=== PATIENT | male | born 1975 | race Caucasian/White ===

== ENCOUNTER 2020-05-24 12:13 | Emergency (ER) | payer BC ==
--- NOTE | 2020-05-24 12:28 | ERPHSYRPT ---
- History of Present Illness Time Seen by Provider: 05/24/20 12:23 Source: patient Exam Limitations: no limitations Physician History: Is a 44-year-old overweight white male who was in the respiratory clinic getting pulmonary function test performed when he was standing up and performing incentive spirometry testing, he began seizing fell to the ground hitting his head. He is brought into the emergency department for evaluation. Patient does complain of's headache. He did not soil himself. He has no history of seizure disorder. He has no history of new medications. He is never had anything like this before. Patient has a cervical collar in place. He denies chest pain he denies fever he denies any issues. Occurred: just prior to arrival Reason for Fall: unknown Injuries/Pain Location: head Loss of Consciousness: seizure (Brief and resolved on its own) Quality: other Severity of Pain-Max: mild (Headache) Severity of Pain-Current: mild Associated Symptoms (Fall): headache Allergies/Adverse Reactions: No Known Drug Allergies Allergy (Verified 05/24/20 12:24) Home Medications: Escitalopram Oxalate [Lexapro] 20 mg PO DAILY 05/24/20 [History] Ezetimibe [Zetia] 10 mg PO DAILY 05/24/20 [History] Rosuvastatin Calcium [Crestor] 40 mg PO DAILY 05/24/20 [History] Travel Risk - International Travel Have you traveled outside of the country in past 3 weeks: No - Coronavirus Screening Are you exhibiting any of the following symptoms?: No Close contact with a COVID-19 positive Pt in past 14-21 Days: No - Review of Systems Constitutional: No Symptoms Eyes: No Symptoms Ears, Nose, & Throat: No Symptoms Respiratory: No Symptoms Cardiac: No Symptoms Abdominal/Gastrointestinal: No Symptoms Genitourinary Symptoms: No Symptoms Musculoskeletal: No Symptoms Skin: No Symptoms Neurological: Headache, Seizure Psychological: No Symptoms Endocrine: No Symptoms Hematologic/Lymphatic: No Symptoms Immunological/Allergic: No Symptoms All Other Systems: Reviewed and Negative - Past Medical History Pertinent Past Medical History: Yes Neurological History: No Pertinent History ENT History: No Pertinent History Respiratory History: No Pertinent History Endocrine Medical History: No Pertinent History Musculoskeletal History: No Pertinent History GI Medical History: No Pertinent History History: No Pertinent History Psycho-Social History: No Pertinent History Male Reproductive Disorders: No Pertinent History - Past Surgical History Neuro Surgical History: No Pertinent History Cardiac: No Pertinent History Respiratory: No Pertinent History Gastrointestinal: No Pertinent History Genitourinary: No Pertinent History Male Surgical History: No Pertinent History - Nursing Vital Signs Nursing Vital Signs: Initial Vital Signs Temperature 98.5 F 05/24/20 12:16 Pulse Rate 79 05/24/20 12:16 Respiratory Rate 22 05/24/20 12:16 Blood Pressure 165/97 05/24/20 12:16 O2 Sat by Pulse Oximetry 96 05/24/20 12:16 Pain Scale Pain Intensity 0 - [place] Coma Score Best Eye Response (Willie): (4) open spontaneously Best Verbal Response (Willie): (5) oriented Best Motor Response (Willie): (6) obeys commands [place] Total: 15 - Physical Exam General Appearance: no apparent distress, alert, anxiety Head Injury: no evidence of injury Eye Exam: PERRL/EOMI, eyes nml inspection ENT Exam: airway nml, nml ext.inspection, No evidence of ENT injury Neck Exam: supple, trachea midline, full range of motion, normal alignment, normal inspection, c-collar in place Respiratory/Chest Exam: normal breath sounds, No chest tenderness, No respiratory distress, No crepitus Cardiovascular Exam: normal heart sounds, regular rate/rhythm Gastrointestinal Exam: soft, normal bowel sounds, No tenderness Rectal Exam: not done Back Exam: normal inspection, normal range of motion, No CVA tenderness, No vertebral tenderness Extremity Exam: normal inspection, normal range of motion, capillary refill <3 sec, pelvis stable Neurologic Exam: alert, oriented x 3, cooperative, correctional nurse II-XII nml as tested, normal mood/affect, sensation nml Skin Exam: normal color, warm, dry SpO2 Interpretation: normal O2 Delivery: Room Air - Course Nursing assessment & vital signs reviewed: Yes EKG Interpreted by Me: RATE, Sinus Rhythm, NORMAL AXIS, NORMAL INTERVALS, NORMAL QRS, Other (No comparison EKG available) Ordered Tests: Active Orders 24 hr Category Date Time Status 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 Care 05/24/20 12:36 Active EKG-ER Only STAT Care 05/24/20 12:35 Active IV Insertion STAT Care 05/24/20 12:35 Active Pulse Oximetry (ED) STAT Care 05/24/20 12:35 Active Seizure Precautions -SCCHED STAT Care 05/24/20 12:35 Active CERVICAL SPINE WO CONTRAST [CT] Stat Exams 05/24/20 12:36 Completed HEAD WITHOUT CONTRAST [CT] Stat Exams 05/24/20 12:36 Completed CBC W DIFF Stat Lab 05/24/20 12:35 Completed CMP Stat Lab 05/24/20 12:35 Completed UA W/RFX UR CULTURE Stat Lab 05/24/20 13:20 Completed Urine Triage Profile Stat Lab 05/24/20 13:20 Completed Lab/Rad Data: Laboratory Result Diagrams 05/24/20 12:35 05/24/20 12:35 Laboratory Results 05/24/20 05/24/20 05/24/20 Range/Units 13:20 13:20 12:35 WBC (4.0-10.5) K/mm3 RBC (4.1-5.6) M/mm3 Hgb (12.5-18.0) gm/dl Hct (42-50) % MCV (78-100) fl MCH (26-32) pg MCHC (32-36) g/dl RDW (11.5-14.0) % Plt Count (150-450) K/mm3 MPV (7.5-11.0) fl Gran % (36.0-66.0) % Eos # (Auto) (0-0.5) Absolute Lymphs (auto) (1.0-4.6) Absolute Monos (auto) (0.0-1.3) Lymphocytes % (24.0-44.0) % Monocytes % (0.0-12.0) % Eosinophils % (0.00-5.0) % Basophils % (0.0-0.4) % Absolute Granulocytes (1.4-6.9) Basophils # (0-0.4) Sodium 136 L (137-145) mmol/L Potassium 3.8 (3.5-5.1) mmol/L Chloride 103 (98-107) mmol/L Carbon Dioxide 25 (22-30) mmol/L Anion Gap 12.5 (5-15) MEQ/L BUN 15 (9-20) mg/dL Creatinine 0.78 (0.66-1.25) mg/dL Estimated GFR > 60.0 ML/MIN Glucose 102 (74-106) mg/dL Calcium 9.3 (8.4-10.2) mg/dL Total Bilirubin 0.50 (0.2-1.3) mg/dL AST 33 (17-59) U/L ALT 34 (0-50) U/L Alkaline Phosphatase 62 (38-126) U/L Serum Total Protein 7.6 (6.3-8.2) g/dL Albumin 4.6 (3.5-5.0) g/dL Urine Color YELLOW (YELLOW) Urine Appearance CLEAR (CLEAR) Urine pH 7.0 (5-6) Ur Specific [place] 1.010 (1.005-1.025) Urine Protein NEGATIVE (Negative) Urine Ketones NEGATIVE (NEGATIVE) Urine Blood NEGATIVE (0-5) Franklin/ul Urine Nitrite NEGATIVE (NEGATIVE) Urine Bilirubin NEGATIVE (NEGATIVE) Urine Urobilinogen NEGATIVE (0-1) mg/dL Ur Leukocyte Esterase NEGATIVE (NEGATIVE) Urine WBC (Auto) NONE (0-5) /HPF Urine RBC (Auto) NONE (0-2) /HPF U Epithel Cells (Auto) NONE (FEW) /HPF Urine Bacteria (Auto) NONE (NEGATIVE) /HPF Urine Mucus (Auto) SLIGHT (NEGATIVE) /HPF Urine Culture Reflexed NO (NO) Urine Glucose NEGATIVE (NEGATIVE) mg/dL Urine Opiates Level NEGATIVE (NEGATIVE) Ur Methadone NEGATIVE (NEGATIVE) Urine Barbiturates NEGATIVE (NEGATIVE) Ur Phencyclidine (PCP) NEGATIVE (NEGATIVE) Urine Amphetamine NEGATIVE (NEGATIVE) U Benzodiazepine Level NEGATIVE (NEGATIVE) Urine Cocaine NEGATIVE (NEGATIVE) Urine Marijuana (THC) NEGATIVE (NEGATIVE) 05/24/20 Range/Units 12:35 WBC 7.0 (4.0-10.5) K/mm3 RBC 4.86 (4.1-5.6) M/mm3 Hgb 14.7 (12.5-18.0) gm/dl Hct 44.2 (42-50) % MCV 90.9 (78-100) fl MCH 30.2 (26-32) pg MCHC 33.3 (32-36) g/dl RDW 13.9 (11.5-14.0) % Plt Count 190 (150-450) K/mm3 MPV 12.1 H (7.5-11.0) fl Gran % 62.2 (36.0-66.0) % Eos # (Auto) 0.09 (0-0.5) Absolute Lymphs (auto) 1.91 (1.0-4.6) Absolute Monos (auto) 0.61 (0.0-1.3) Lymphocytes % 27.4 (24.0-44.0) % Monocytes % 8.7 (0.0-12.0) % Eosinophils % 1.3 (0.00-5.0) % Basophils % 0.4 (0.0-0.4) % Absolute Granulocytes 4.34 (1.4-6.9) Basophils # 0.03 (0-0.4) Sodium (137-145) mmol/L Potassium (3.5-5.1) mmol/L Chloride (98-107) mmol/L Carbon Dioxide (22-30) mmol/L Anion Gap (5-15) MEQ/L BUN (9-20) mg/dL Creatinine (0.66-1.25) mg/dL Estimated GFR ML/MIN Glucose (74-106) mg/dL Calcium (8.4-10.2) mg/dL Total Bilirubin (0.2-1.3) mg/dL AST (17-59) U/L ALT (0-50) U/L Alkaline Phosphatase (38-126) U/L Serum Total Protein (6.3-8.2) g/dL Albumin (3.5-5.0) g/dL Urine Color (YELLOW) Urine Appearance (CLEAR) Urine pH (5-6) Ur Specific [place] (1.005-1.025) Urine Protein (Negative) Urine Ketones (NEGATIVE) Urine Blood (0-5) Franklin/ul Urine Nitrite (NEGATIVE) Urine Bilirubin (NEGATIVE) Urine Urobilinogen (0-1) mg/dL Ur Leukocyte Esterase (NEGATIVE) Urine WBC (Auto) (0-5) /HPF Urine RBC (Auto) (0-2) /HPF U Epithel Cells (Auto) (FEW) /HPF Urine Bacteria (Auto) (NEGATIVE) /HPF Urine Mucus (Auto) (NEGATIVE) /HPF Urine Culture Reflexed (NO) Urine Glucose (NEGATIVE) mg/dL Urine Opiates Level (NEGATIVE) Ur Methadone (NEGATIVE) Urine Barbiturates (NEGATIVE) Ur Phencyclidine (PCP) (NEGATIVE) Urine Amphetamine (NEGATIVE) U Benzodiazepine Level (NEGATIVE) Urine Cocaine (NEGATIVE) Urine Marijuana (THC) (NEGATIVE) - Progress Progress: improved Progress Note: 05/24/20 14:13 CAT scan of the head reveals no acute intracranial abnormality. CAT scan of the cervical spine reveals no evidence of any acute fracture or subluxation Counseled pt/family regarding: lab results, diagnosis, need for follow-up, rad results - Departure Departure Disposition: Home Clinical Impression: Vasovagal response, Head injury Condition: Stable Critical Care Time: No Referrals: DOCTOR,NO FAMILY [Primary Care Provider] - Additional Instructions: Take your medication as prescribed. May use Tylenol and ibuprofen for pain issues. Follow-up with your primary care physician for further pain management. Drink plenty of fluids.
[2020-05-24 12:48] LABS: Absolute Neutrophil Ct (ANC) 4.34 (1.4-6.9); BASOPHIL % 0.4 % (0.0-0.4); Basophil (Absolute #) 0.03 (0-0.4); Eosinophil % 1.3 % (0.00-5.0); Eosinophil (Absolute #) 0.09 (0-0.5); Hematocrit 44.2 % (42-50); Hemoglobin 14.7 gm/dl (12.5-18.0); Lymphocyte (Absolute #) 1.91 (1.0-4.6); Lymphocytes % 27.4 % (24.0-44.0); Mean Cell Volume 90.9 fl (78-100); Mean Corpuscular Hemoglobin 30.2 pg (26-32); Mean Corpuscular Hgb Concent. 33.3 g/dl (32-36); Mean Platelet Volume 12.1 fl (7.5-11.0); Monocyte (Absolute #) 0.61 (0.0-1.3); Monocytes % 8.7 % (0.0-12.0); Neutrophil % 62.2 % (36.0-66.0); Platelet Count 190 K/mm3 (150-450); Red Blood Count 4.86 M/mm3 (4.1-5.6); Red Cell Distribution Width 13.9 % (11.5-14.0)
[2020-05-24 12:59] LABS: ALBUMIN 4.6 g/dL (3.5-5.0); ALKALINE PHOSPHATASE 62 U/L (38-126); ANION GAP 12.5 MEQ/L (5-15); BLOOD UREA NITROGEN 15 mg/dL (9-20); CHLORIDE 103 mmol/L (98-107); Calcium 9.3 mg/dL (8.4-10.2); Carbon Dioxide 25 mmol/L (22-30); Creatinine 1 0.78 mg/dL (0.66-1.25); EST GLOMERULAR FILTRATION RATE > 60.0 ML/MIN; Glucose 102 mg/dL (74-106); Potassium 3.8 mmol/L (3.5-5.1); SGOT/AST 33 U/L (17-59); SGPT/ALT 34 U/L (0-50); SODIUM 136 mmol/L (137-145); Total Protein 7.6 g/dL (6.3-8.2)
--- NOTE | 2020-05-24 13:42 | XRAY ---
Exam: CT of the head without IV contrast from 05/24/2020. CTDI: 53.92 mGy Comparison: None. Indication: 44-year-old male with seizure and fall while doing a breathing test in respiratory therapy. Technique: Non-IV contrast axial images were obtained through the brain. Reconstructed coronal and sagittal images were created and reviewed. Findings: The ventricles appear within normal limits of size. The right lateral ventricle slightly larger than the left lateral ventricle which probably represents a normal variant. No focal mass effect or midline shift is seen. No acute intracranial bleed or abnormal extra-axial fluid collection is seen. The patel matter-white matter interfaces appear unremarkable. No low attenuation territorial infarct is seen. The cortical sulci and basilar cisterns appear unremarkable. Artifactual streaking is seen from dental amalgam. Bone window images reveal an intact calvarium without evidence of skull fracture. Some mucoperiosteal thickening is seen at the frontal-ethmoidal recesses bilaterally, right greater than left. There is also scant mucoperiosteal thickening within the upper medial aspect of each maxillary antrum. No air-fluid levels are seen. There is some focal inward bowing of the medial wall of the right orbit on axial image #28 and #29 which is apparently old. However, correlate clinically. The mastoids reveal normally aerated air cells without effusion. The middle ear cavities appear grossly unremarkable. The remainder of the orbits appears normal. Impression: 1. No acute intracranial bleed or other acute intracranial process is seen. 2. There is mild focal inward bowing of the medial wall of the right orbit on axial images #28 and #29. Apparently, this is old. Correlate clinically. 3. I also note a small amount of mucoperiosteal thickening within the frontal-ethmoid recesses, right greater than left. Scant mucoperiosteal thickening is seen at the medial margin of the maxillary sinuses. No air-fluid levels are seen.
--- NOTE | 2020-05-24 13:49 | XRAY ---
Exam: CT of the cervical spine without IV contrast from 05/24/2020. CTDI: 58.51 mGy Comparison: None. Indication: 44-year-old male with seizure and fall while doing a breathing test in respiratory therapy. Indication: Non-IV contrast axial images were obtained through the cervical spine. Reconstructed coronal and sagittal images were created and reviewed. Findings: I see no evidence of acute cervical spine fracture or AP subluxation. No prevertebral soft tissue swelling is seen. I see no locking of any of the facet joints. Minimal anterior vertebral endplate spurring is seen at C5-C6. There is no evidence of central cervical canal stenosis. The cervical interspaces reveal no significant narrowing. Minimal hypertrophic changes of the upper and mid cervical uncovertebral joints are seen. There are no cervical ribs. The C1-C2 relationship appears unremarkable. No gross significant cervical disc protrusion is seen. No significant neural foraminal narrowing is seen. The right C2-C3 and C3-C4 neural foramen do appear narrower than the respective neural foramen the left. The visualized lung apices appear clear. Impression: 1. No acute cervical spine fracture, AP traumatic subluxation, or prevertebral soft tissue swelling is seen. 2. Minimal degenerative changes, as discussed above.
[2020-05-24 13:52] LABS: Appearance CLEAR (CLEAR); Bilirubin NEGATIVE (NEGATIVE); Blood NEGATIVE Ery/ul (0-5); Glucose NEGATIVE (NEGATIVE); Ketones NEGATIVE (NEGATIVE); Leukocyte Esterase NEGATIVE (NEGATIVE); Mucus SLIGHT /HPF (NEGATIVE); Nitrite NEGATIVE (NEGATIVE); Protein,Urine Dip NEGATIVE (Negative); Urobilinogen NEGATIVE mg/dL (0-1)
[2020-05-24 14:00] LABS: Amphetamine,Urine NEGATIVE (NEGATIVE); Barbiturate,Urine NEGATIVE (NEGATIVE); Benzodiazepine,Urine NEGATIVE (NEGATIVE); Cocaine,Urine NEGATIVE (NEGATIVE); Methadone,Urine NEGATIVE (NEGATIVE); Opiate,Urine NEGATIVE (NEGATIVE); PCP,Urine NEGATIVE (NEGATIVE); THC,Urine NEGATIVE (NEGATIVE)
[2020-05-24 14:08] VITALS: BP 127/81
[2020-05-24 14:23] VITALS: PULSE 90; O2SAT 97
== END 2020-05-24 14:24 | disposition home or self-care (01) ==
LOC: ED 12:13
DX: R55 Syncope and collapse (principal); S09.90XA Unspecified injury of head, initial encounter; G40.909 Epilepsy, unspecified, not intractable, without status epilepticus; Z79.899 Other long term (current) drug therapy
CPT/HCPCS: 36000; 36415; 70450; 72125; 80053; 80307; 81001; 85025; 93005; 93041; 94760; 99284; L0172